=== PATIENT | male | born 1970 ===

== ENCOUNTER 2018-09-27 21:32 | Emergency (ER) | payer SELFPAY ==
[2018-09-27] MEDS ORDERED: Sodium Chloride 0.9% 1,000 ML IV ONE (21:48)
[2018-09-27 22:08] LABS: BASO # 0.3 K/uL (0.0-0.2); BASO % 1.9 % (0.0-2.0); EOS # 0.4 K/uL (0.0-0.7); EOS % 2.6 % (0.0-4.0); HEMOGLOBIN 15.3 g/dL (12.0-18.0); LYMPH # 2.8 K/uL (1.0-4.3); LYMPH % 16.7 % (20.0-40.0); MEAN CELL VOLUME 95.2 fL (80.0-94.0); MEAN CORPUSCULAR HEMOGLOBIN 31.6 pg (27.0-31.0); MEAN CORPUSCULAR HGB CONC 33.2 g/dL (33.0-37.0); MEAN PLATELET VOLUME 9.1 fL (7.2-11.7); MONO # 0.9 K/uL (0.0-0.8); MONO % 5.6 % (0.0-10.0); NEUT # 12.1 K/uL (1.8-7.0); NEUT % 73.2 % (50.0-75.0); RBC 4.84 Mil/uL (4.40-5.90); RED CELL DISTRIBUTION WIDTH 14.6 % (11.5-14.5); WHITE BLOOD COUNT 16.5 K/uL (4.8-10.8)
[2018-09-27 22:14] LABS: ALB/GLOB RATIO 1.6 (1.0-2.1); ALBUMIN 4.3 g/dL (3.5-5.0); ALT/SGPT 28 U/L (21-72); AST/SGOT 24 U/L (17-59); BLOOD UREA NITROGEN 16 mg/dL (9-20); CALCIUM 9.3 mg/dl (8.6-10.4); GFR NON-AFRICAN AMERICAN > 60; LIPASE 53 U/L (23-300)
--- NOTE | 2018-09-27 22:51 | C.PDOC ---
History Of Present Illness 48 year old male presents to the ED c/o sudden onset right flank pain radiating to his RLQ. Patient reports pain is associated with nausea and vomit. Patient denies fever, chills, diarrhea, dysuria, hematuria, rash, weakness, numbness. Time Seen by Provider: 09/27/18 21:45 Chief Complaint (Nursing): Abdominal Pain History Per: Patient History/Exam Limitations: no limitations Onset/Duration Of Symptoms: Sudden Onset Current Symptoms Are (Timing): Still Present Location Of Pain/Discomfort: RLQ Radiation Of Pain To:: Flank Quality Of Discomfort: "Pain" Associated Symptoms: Nausea, Vomiting. denies: Diarrhea, Urinary Symptoms Recent travel outside of the [place]: No Additional History Per: Patient Past Medical History Reviewed: Historical Data, Nursing Documentation, Vital Signs Vital Signs: Last Vital Signs Temp 98.3 F 09/27/18 21:39 Pulse 66 09/27/18 21:39 Resp 16 09/27/18 21:39 BP 149/95 H 09/27/18 21:39 Pulse Ox 100 09/27/18 21:39 - Medical History PMH: No Chronic Diseases Surgical History: No Surg Hx Family History: States: Unknown Family Hx - Social History Hx Alcohol Use: No Hx Substance Use: No Review Of Systems Constitutional: Negative for: Fever, Chills Cardiovascular: Negative for: Chest Pain Respiratory: Negative for: Shortness of Breath Gastrointestinal: Positive for: Nausea, Vomiting, Abdominal Pain Genitourinary: Negative for: Dysuria, Hematuria Musculoskeletal: Positive for: Back Pain Skin: Negative for: Rash Neurological: Negative for: Weakness, Numbness Physical Exam - Physical Exam Appears: Non-toxic, No Acute Distress Skin: Normal Color, Warm, Dry Head: Atraumatic, Normacephalic Eye(s): bilateral: Normal Inspection Oral Mucosa: Moist Neck: Normal ROM, Supple Chest: Symmetrical Cardiovascular: Rhythm Regular Respiratory: Normal Breath Sounds, No Rales, No Rhonchi, No Wheezing Gastrointestinal/Abdominal: Soft, Tenderness (RLQ), No Guarding, No Rebound Back: CVA Tenderness (right) Extremity: Normal ROM, No Tenderness, No Swelling Neurological/Psych: Oriented x3, Normal Speech, Normal Cognition Gait: Steady ED Course And Treatment - Laboratory Results Result Diagrams: 09/27/18 21:58 09/27/18 21:58 Lab Results: Total Bilirubin 0.6 mg/dL (0.2-1.3) 09/27/18 21:58 AST 24 U/L (17-59) 09/27/18 21:58 ALT 28 U/L (21-72) 09/27/18 21:58 Alkaline Phosphatase 119 U/L (38-126) 09/27/18 21:58 Total Protein 7.0 g/dL (6.3-8.3) 09/27/18 21:58 Albumin 4.3 g/dL (3.5-5.0) 09/27/18 21:58 Globulin 2.7 gm/dL (2.2-3.9) 09/27/18 21:58 Albumin/Globulin Ratio 1.6 (1.0-2.1) 09/27/18 21:58 Lipase 53 U/L (23-300) 09/27/18 21:58 O2 Sat by Pulse Oximetry: 100 (On RA) Pulse Ox Interpretation: Normal - CT Scan/US CT abd/pelvis Other Rad Studies (CT/US): Read By Radiologist, Radiology Report Reviewed CT/US Interpretation: EXAM: CT Abdomen and Pelvis without IV contrast. CLINICAL HISTORY: PATIENT WITH RIGHT SIDED PAIN N/V X 24HRS. TECHNIQUE: Axial computed tomography images of the abdomen and pelvis without intravenous contrast. 0.00 mGy-cm. CONTRAST: Without. COMPARISON: None provided. FINDINGS: LUNG BASES: Small airspace opacity is seen in the posterior right lower lobe thought compatible with pneumonic consolidation. No pleural effusions are seen. LIVER: Mild hepatomegaly. The liver measured 16.6 cm in the midclavicular line. GALLBLADDER AND BILE DUCTS: The gallbladder appears within normal limits. No radioopaque gallstones are seen. No biliary ductal dilatation is evident. PANCREAS: Unremarkable. SPLEEN: Unremarkable. ADRENAL GLANDS: Unremarkable. KIDNEYS, URETERS, AND BLADDER: Both kidneys are normal in size and position. There is mild right hydronephrosis and continuous right ureter demonstrated. An approximately 3.3 mm non-obstructing calculus is seen in the lower left renal pole. A 3.3 mm calculus is seen in the posterior midline lumen of the urinary bladder; thought to have recently migrated from the right intrarenal collecting system. The urinary bladder otherwise appeared normal in size and configuration. STOMACH AND BOWEL: Unremarkable appearance of the stomach and bowel. No evidence of bowel obstruction. No evidence suggesting enteritis or colitis. Diverticulosis coli is noted in the distal transverse, descending and sigmoid colon without evidence of acute diverticulitis. APPENDIX: No evidence of acute appendicitis on CT examination. PERITONEUM: No free fluid. No free air. A small left inguinal hernia is identified which contains fat. LYMPH NODES: No lymphadenopathy is evident. REPRODUCTIVE: Unremarkable as visualized. VASCULATURE: No evidence of abdominal aortic aneurysm. BONES: No aggressive appearing osseous lesion. No acute osseous pathology evident. IMPRESSION: 1. Small posterior right lower lobe pneumonic consolidation. 2. Mild right hydronephrosis and continuous right ureter with 3.3 mm calculus in the lumen of the urinary bladder. These findings are thought indicative of recent passage of a calculus from the right intrarenal collecting system into the bladder. 3. A 3.3 mm non-obstructing calculus is seen in the lower left renal pole. 4. Diverticulosis coli of the left hemicolon without evidence of acute diverticulitis. 5. Mild hepatomegaly. 6. Small left inguinal hernia containing fat. . Electronically signed on Sep 27, 2018 10:50:27 PM EDT by: Riley Manning M.D., ALFA Certified By ABR & CBC[employer]. Fellowship Trained MRI and CT Specialist. Medical Decision Making Medical Decision Making: Assessment: Kidney stone Plan: * CT abd/pelvis * Kidney stone passes, right lower lobe infiltrate * Labs * IV fluids * Toradol 30 mg IVP * Zithromax 500 mg PO * Zofran 4 mg IVP * UA Patient given Zpack for right lower lobe infiltrate seen in CT scan. Patient reports improvement, remains in NAD and stable for D/C home. Patient advised to follow up with PMD. Disposition - Disposition Referrals: David Acevedo MD [Staff Provider] - Disposition: HOME/ ROUTINE Disposition Time: 23:25 Condition: STABLE Additional Instructions: follow up with urology and your doctor within 2 days call to make an appointment take medications as prescribed return to ER if symptoms worsens or progress Prescriptions: Azithromycin [Zithromax] 250 mg PO DAILY #4 tab Naproxen [Naprosyn] 500 mg PO BID PRN #16 tab PRN Reason: Pain, Moderate (4-7) Instructions: Pneumonia in Adults, Kidney Stones (DC) Forms: [employer] (Romanian), General Discharge Instructions - Clinical Impression Clinical Impression: Pneumonia, Kidney stone - Scribe Statement The provider has reviewed the documentation as recorded by the Scribe Nicho Farrell All medical record entries made by the Scribe were at my direction and personally dictated by me. I have reviewed the chart and agree that the record accurately reflects my personal performance of the history, physical exam, medical decision making, and the department course for this patient. I have also personally directed, reviewed, and agree with the discharge instructions and disposition.
[2018-09-27 23:31] LABS: URINE AMORPHOUS SEDIMENT MODERATE /ul (<OCC); URINE BILIRUBIN NEGATIVE (NEGATIVE); URINE BLOOD 3+ (NEGATIVE); URINE CLARITY Hazy (Clear); URINE COLOR Yellow (YELLOW); URINE GLUCOSE (UA) NORMAL (Normal); URINE LEUKOCYTE ESTERASE NEG Leu/uL (Negative); URINE PROTEIN NEGATIVE (NEGATIVE); URINE UROBILINOGEN NORMAL mg/dL (0.2-1.0)
[2018-09-28 00:09] VITALS: BP 145/78; PULSE 75; RESP 17; TEMP 98; O2SAT 99
--- NOTE | 2018-09-28 08:51 | CT ---
Date of service: 09/27/2018 PROCEDURE: CT Abdomen and Pelvis without intravenous contrast HISTORY: Abdominal pain COMPARISON: None. TECHNIQUE: Multiple contiguous axial images were performed through the abdomen and pelvis without the use of intravenous contrast. Subsequently, sagittal and coronal reformatted images were obtained. Radiation dose: Total exam DLP = 585.87 mGy-cm. This CT exam was performed using one or more of the following dose reduction techniques: Automated exposure control, adjustment of the mA and/or kV according to patient size, and/or use of iterative reconstruction technique. FINDINGS: LOWER THORAX: Focal consolidative opacification seen within the right lower lobe which may represent underlying infiltrate. Clinical correlation. Milder patchy opacities at the left lung base. LIVER: Unremarkable. No gross lesion or ductal dilatation. GALLBLADDER AND BILE DUCTS: Unremarkable. PANCREAS: Unremarkable. No gross lesion or ductal dilatation. SPLEEN: Unremarkable. ADRENALS: Unremarkable. No mass. KIDNEYS AND URETERS: Right kidney: Moderate right renal hydroureteronephrosis. 3.4 millimeter calculus in the posterior urinary bladder suggestive for a passed calculi. Left Kidney: 4.3 millimeter nonobstructive calculus in the lower pole of the left kidney. VASCULATURE: Unremarkable. No aortic aneurysm. No aortic atherosclerotic calcification or mural plaque present. BOWEL: Colonic diverticulosis. Under distended transverse and left hemicolon. APPENDIX: Not well identified on this noncontrast study. PERITONEUM: Unremarkable. No free fluid. No free air. LYMPH NODES: Few shotty para-aortic and inguinal lymph nodes. Few shotty mesenteric lymph nodes. BLADDER: Unremarkable. REPRODUCTIVE: Heterogeneous and prominent prostate. Calcified phleboliths in the posterior pelvis. BONES: Degenerative changes in the spine. Degenerative changes in the bilateral hips. Inferior endplate concavities at the L3, L4, and L5 vertebral bodies with multilevel posterior disc osteophyte complexes. Clinical correlation. Productive change with rounded ossific densities at the anterior superior acetabulum bilaterally. Clinical correlation. OTHER FINDINGS: Small fat containing left inguinal hernia. IMPRESSION: 1. Moderate right renal hydroureteronephrosis with likely passed calculus seen within the posterior urinary bladder measuring 3.3 millimeters. 2. Additional nonobstructive calculus seen in the lower pole of the left kidney measuring 4.3 millimeters. 3. Focal consolidation concerning for possible right lower lobe pneumonia. Clinical correlation. 4. Additional findings as above. A preliminary report was generated at 10:50 p.m. on 09/27/[address] Riley Manning from [facility] [employer].
== END 2018-09-28 00:08 | disposition home or self-care (01) ==
LOC: C.ER 21:32
DX: J18.9 Pneumonia, unspecified organism (principal); N13.2 Hydronephrosis with renal and ureteral calculous obstruction
CPT/HCPCS: 74176; 80053; 81001; 83690; 85025; 96374; 96375; 99283; J1885; J2405; J7030